=== PATIENT | male | born 1995 | race Caucasian/White ===

== ENCOUNTER 2019-05-16 18:22 | Emergency (ER) | payer BC, MEDICAID ==
[~2019-05-16] VITALS: Ht 180.3 cm; Wt 62.0 kg
[2019-05-16] MEDS ORDERED: ONDANSETRON HCL 4MG/2ML INJ IV ONE (21:00)
[2019-05-16 21:43] VITALS: BP 103/67
== END 2019-05-16 21:48 | disposition home or self-care (01) ==
LOC: ER 19:17
DX: A05.9 Bacterial foodborne intoxication, unspecified (principal); F12.10 Cannabis abuse, uncomplicated; F17.200 Nicotine dependence, unspecified, uncomplicated
CPT/HCPCS: 96374; 99283; J2405

== ENCOUNTER 2022-05-25 00:08 | Emergency (ER) | payer BC, OTHER ==
[~2022-05-25] VITALS: Ht 180.3 cm; Wt 72.0 kg
[2022-05-25 00:49] VITALS: BP 116/68
== END 2022-05-25 04:00 | disposition left against medical advice (07) ==
LOC: ER 00:08
DX: Z53.21 Procedure and treatment not carried out due to patient leaving prior to being seen by health care provider (principal)